=== PATIENT | male | born 1990 | race Hispanic/Latino ===

== ENCOUNTER 2018-04-10 12:51 | Emergency (ER) | payer OTHER ==
[2018-04-10 13:30] LABS: ALT (SGPT) 45 U/L (8-55); AST (SGOT) 28 U/L (5-34); Albumin 4.4 g/dL (3.5-5.0); Alkaline Phosphatase 102 U/L (40-150); Anion Gap 15 mmol/L (10-20); BUN (Urea Nitrogen) 14 mg/dL (8.9-20.6); Bilirubin, Total 1.4 mg/dL (0.2-1.2); Calc. Creatinine Clearance 0 mL/min (70-130); Calcium 9.3 mg/dL (7.8-10.44); Carbon Dioxide 24 mmol/L (22-29); Chloride 103 mmol/L (98-107); Estimated GFR-MDRD 89; Globulin 3.2 g/dL (2.4-3.5); Glucose 100 mg/dL (70-105); Protein, Total 7.6 g/dL (6.0-8.3); Sodium 138 mmol/L (136-145)
[2018-04-10 13:33] LABS: #Basophils 0.1 thou/uL (0.0-0.2); #Lymphocytes 1.3 thou/uL (1.20-3.40); #Monocytes 0.3 thou/uL (0.11-0.59); #Neutrophils 3.4 thou/uL (1.40-6.50); %Basophils 1.1 % (0.0-1.0); %Eosinophils 0.9 % (0.0-10.0); %Lymphocytes 25.3 % (21.0-51.0); %Monocytes 5.5 % (0.0-10.0); %Neutrophils 67.2 % (42.0-75.0); Hemoglobin 16.2 g/dL (14.0-18.0); Mean Corpuscular HGB CONC 33.9 g/dL (32.0-36.0); Mean Corpuscular Hemoglobin 26.6 pg (27.0-31.0); Mean Corpuscular Volume 78.7 fl (80.0-94.0); Mean Platelet Volume 7.7 fL (7.4-10.4); Platelet Count 202 thou/uL (130-400); Red Blood Cell (RBC) Count 6.09 mill/uL (4.70-6.10)
[2018-04-10] MEDS ORDERED: Ibuprofen 800 MG TAB ONE (14:05)
--- NOTE | 2018-04-10 20:17 | CT ---
CT BRAIN WITHOUT CONTRAST: 04/10/2018 FINDINGS: The ventricles are normal in size with no shift. No intracranial bleeding, mass, or sign of stroke i s found. No extraaxial hematoma is seen. There is no air-fluid level in the sphenoid sinus. The ma stoid air cells are clear. The skull shows no fracture. IMPRESSION: No acute intracranial findings. POS: HOME
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
== END 2018-04-10 14:10 | disposition home or self-care (01) ==
LOC: BURERS 12:51
DX: S09.90XA Unspecified injury of head, initial encounter (principal); S16.1XXA Strain of muscle, fascia and tendon at neck level, initial encounter; S39.012A Strain of muscle, fascia and tendon of lower back, initial encounter; S40.012A Contusion of left shoulder, initial encounter; V89.2XXA Person injured in unspecified motor-vehicle accident, traffic, initial encounter
CPT/HCPCS: 70450; 72125; 74177; 80053; 85025; 94760; G0390